=== PATIENT | male | born 1970 | race Caucasian/White ===

== ENCOUNTER → 2018-05-02 | Outpatient (CLI) | payer BC ==
--- NOTE | 2018-05-02 18:44 | P.STRESS ---
- Stress Test Note Stress Test Results/Findings: Exam Performed: stress test Exam Date: 05/02/18 Reason for Exam: Palpitations Height: 6 ft 3 in Weight: 99.79 kg Protocol: Isak Stage: III Duration of Exercise: 9:06 Resting Heart Rate: 96 Resting Blood Pressure: 130/99 Maximum Achieved Heart Rate: 169 Maximum Achieved Blood Pressure: 157/67 85% PMHR: 146 100% PMHR: 172 METS: 10.3 Technologist Comment: Stress Test Results/Findings: This is a 47-year-old gentleman with history of hypercholesterolemia, being evaluated for symptoms of palpitations. Stress data: Baseline EKG showed sinus rhythm with all when necessary for constipation. Blood pressure at rest is 12/12/1998 with pulse rate of 96. Patient walked on the Isak protocol for 9 minutes achieving a maximum heart rate of 169 with a blood pressure of 157/67. EKGs taken during and after the x- ray did not reveal any changes to sized ischemia. Patient did not experience any chest pain. There were no arrhythmias. Final impression: #1. Negative stress test #2. Patient did not express chest pain #3. No arrhythmias noted. #4. Patient exercise capacity is good.
--- NOTE | 2018-05-03 14:01 | ECHOF ---
Referral Reason:R00.2 Palpitations MEASUREMENTS -------- HEIGHT: 190.5 cm WEIGHT: 99.8 kg BP: 130/99 RVIDd: 3.4 cm (< 3.3) IVSd: 1.0 cm (0.6 - 1.1) LVIDd: 4.5 cm (3.9 - 5.3) LVPWd: 1.0 cm (0.6 - 1.1) IVSs: 1.5 cm LVIDs: 3.1 cm LVPWs: 1.5 cm LA Diam: 2.6 cm (2.7 - 3.8) LAESV Index (A-L): 13.66 ml/m Ao Diam: 4.1 cm (2.0 - 3.7) AV Cusp: 2.3 cm (1.5 - 2.6) MV EXCURSION: 15.184 mm (> 18.000) MV EF SLOPE: 96 mm/s (70 - 150) EPSS: 1.0 cm MV E Heladio: 0.53 m/s MV DecT: 173 ms MV A Heladio: 0.98 m/s MV E/A Ratio: 0.54 FINDINGS -------- Sinus rhythm. This was a technically good study. The left ventricular size is normal. Left ventricular wall thickness is normal. Overall left vent ricular systolic function is normal with, an EF between 60 - 65 %. The right ventricle is mildly enlarged. Normal LA size by volume 22+/-6 ml/m2. The right atrium is normal in size. The aortic valve is trileaflet and appears structurally normal. The mitral valve is normal. The tricuspid valve appears structurally normal. There is no pulmonic regurgitation present. The aortic root is dilated measuring 4.1cm. Normal inferior vena cava with normal inspiratory collapse consistent with estimated right atrial pre ssure of 5 mmHg. There is no pericardial effusion. CONCLUSIONS -------- 1. Sinus rhythm. 2. This was a technically good study. 3. The left ventricular size is normal. 4. Left ventricular wall thickness is normal. 5. Overall left ventricular systolic function is normal with, an EF between 60 - 65 %. 6. The right ventricle is mildly enlarged. 7. Normal LA size by volume 22+/-6 ml/m2. 8. The right atrium is normal in size. 9. The aortic valve is trileaflet and appears structurally normal. 10. The mitral valve is normal. 11. The tricuspid valve appears structurally normal. 12. There is no pulmonic regurgitation present. 13. The aortic root is dilated measuring 4.1cm. 14. Normal inferior vena cava with normal inspiratory collapse consistent with estimated right atrial pressure of 5 mmHg. 15. There is no pericardial effusion. VEGETABLE GROWER: Ramonita Cai RDCS
== END | disposition home or self-care (01) ==
LOC: RADNMMAIN 11:08
PROVIDERS: ATTEND Family Medicine
DX: I51.7 Cardiomegaly (principal); I77.819 Aortic ectasia, unspecified site
CPT/HCPCS: 93017; 93306

== ENCOUNTER → 2021-03-22 | Outpatient (CLI) | payer BC | END | disposition home or self-care (01) | LOC: LABWHC1 15:01 | PROVIDERS: ATTEND Surgery | DX: Z20.822 Contact with and (suspected) exposure to COVID-19 (principal) | CPT/HCPCS: U0003; C9803; U0005 ==

== ENCOUNTER 2021-03-29 12:56 | Day surgery (SDC) | payer BC ==
[2021-03-24 15:49] VITALS: BMI 27.2
[~2021-03-29 12:56] MED LIST: LACTATED RINGERS 1,000 ML IV SCH; ONDANSETRON 4 MG/2 ML VIAL IVP PRN
[2021-03-29 13:27] VITALS: TEMP 98.1
[2021-03-29] MEDS ORDERED: LIDOCAINE 1% (10MG/ML) FOR IV START INTRADERMA ONE (13:40)
[2021-03-29] MEDS ORDERED: PROPOFOL 10 MG/ML 20 ML VIAL IV ONE (15:00)
[2021-03-29] MEDS ORDERED: MIDAZOLAM 2 MG/2 ML VIAL ONE (15:00)
[2021-03-29] MEDS ORDERED: IV FLUID CONTINUATION 1,000 ML IV ONE (15:22)
--- NOTE | 2021-03-29 15:36 | P.GSHP ---
History of Present Illness H&P Date: 03/29/21 30-year-old male presents today for screening colonoscopy. He has never had a previous colonoscopy. Patient also states that he has had a history of a food bolus getting stuck a proximally 5 or 6 years ago. He also does have reflux for which she takes a PPI daily. Secondary to this, he is also requested an upper endoscopy. - Review of Systems All systems: negative Past Medical History Past Medical History: Hyperlipidemia Additional Past Medical History / Comment(s): states "feels like is getting food stuck", hx of Covid 10/2020 History of Any Multi-Drug Resistant Organisms: None Reported Past Surgical History: Hernia Repair Additional Past Surgical History / Comment(s): EGD Past Anesthesia/Blood Transfusion Reactions: No Reported Reaction Past Alcohol Use History: None Reported - Past Family History Mother Family Medical History: No Reported History Medications and Allergies Home Medications Medication Instructions Recorded Confirmed Type Atorvastatin Calcium [Lipitor] 10 mg PO HS 07/18/15 03/29/21 History Omeprazole 20 mg PO DAILY 06/02/16 03/29/21 History Allergies Allergy/AdvReac Type Severity Reaction Status Date / Time Penicillins Allergy Swelling Verified 03/29/21 13:25 Surgical - Exam Osteopathic Statement: *. No significant issues noted on an osteopathic structural exam other than those noted in the History and Physical/Consult. Vital Signs Temp Pulse Resp BP Pulse Ox 98.1 F 108 H 16 150/98 95 03/29/21 13:14 03/29/21 13:14 03/29/21 13:14 03/29/21 13:14 03/29/21 13:14 - General well nourished, no distress - Respiratory normal respiratory effort - Abdomen Abdomen: soft, non tender Assessment and Plan Plan: 50-year-old male presents for upper and lower endoscopy. Upper endoscopy will be performed to evaluate secondary to GERD and previous food bolus. Lower endoscopy is performed for screening. Patient was explained the risks, benefits and alternatives of procedure and did provide consent prior to attending the endoscopy suite.
--- NOTE | 2021-03-29 15:39 | P.PCN ---
Date of Procedure: 03/29/21 Preoperative Diagnosis: GERD Screening Postoperative Diagnosis: Gastritis Duodenitis Normal colon Procedure(s) Performed: EGD with biopsy Colonoscopy Anesthesia: MAC Surgeon: Tigre Lucero Pathology: other (Biopsies of esophagus, antrum, duodenum) Condition: stable Disposition: same day Indications for Procedure: 50-year-old male presents for screening colonoscopy. He also was noted to have a history of reflux and history of food bolus getting stuck. Secondary to this plan is for upper endoscopy as well. Patient was explained risks, benefits and alternatives to procedure and did provide consent prior to attending the endoscopy suite. Operative Findings: Gastritis Duodenitis Normal colon Description of Procedure: The patient was brought to [facility] and placed in left lateral decubitus position and adequate sedation was achieved using conscious sedation. A bite block was placed and an endoscope was placed in the oropharynx and advanced under endoscopic visualization. The endoscope was advanced through the esophagus into the stomach, through the gastric antrum and in through the pylorus. The third portion of the duodenum was visualized. The endoscope was then slowly withdrawn. The first portion of the duodenum was noted to have mild infarct or changes. Biopsies were taken. The antrum was noted to have informed her changes. Biopsies were taken. The gastric body distended normally and the gastric folds appeared normal and flattened with insufflation. A retroflexed view of the fundus and GE junction revealed no significant hiatal hernia. The esophagus appeared endoscopically normal. There is no evidence of any stri cture. Biopsies were taken of the distal esophagus. Excess air was removed and the scope was withdrawn. A digital rectal exam was performed and mild internal hemorrhoids were palpated. An endoscope was then placed in the rectum and advanced to the cecum as identified by kathleen including the appendiceal orifice and the ileocecal valve. The prep was good. The colonoscope was then slowly withdrawn, examining for any mucosal or malleus. The cecum, ascending, transverse, descending and sigmoid colon were visualized adequately. There were no obvious neoplastic lesions noted throughout the colon. There were no obvious polyps noted throughout the colon. There is no evidence of diverticulosis. Retroflexion was performed the rectum and mild internal hemorrhoids were visible. Excess air was removed from the colonoscope withdrawn and the procedure terminated. The patient was then transferred to the recovery unit in stable condition. Repeat colonoscopy should be performed in 8 years.
[2021-03-29 15:45] VITALS: BP 117/78; PULSE 72; RESP 18
== END 2021-03-29 16:09 | disposition home or self-care (01) ==
LOC: ORWHC2ENDO 12:56
PROVIDERS: ATTEND Surgery
DX: Z12.11 Encounter for screening for malignant neoplasm of colon (principal); K20.0 Eosinophilic esophagitis; K29.80 Duodenitis without bleeding; K29.70 Gastritis, unspecified, without bleeding; K64.8 Other hemorrhoids; Z98.890 Other specified postprocedural states; E78.5 Hyperlipidemia, unspecified; Z79.899 Other long term (current) drug therapy; Z88.0 Allergy status to penicillin
CPT/HCPCS: 88305; 43239; J2250; J2704; G0121

== ENCOUNTER → 2021-12-13 | Outpatient (CLI) | payer BC ==
--- NOTE | 2021-12-13 10:03 | CT ---
EXAMINATION TYPE: CT sinus wo con DATE OF EXAM: 12/13/2021 COMPARISON: None HISTORY: Sinusitis CT DLP: 718.[address] of the paranasal sinuses was performed in the axial and coronal planes. Bone and soft tissue settings are submitted. The paranasal sinuses demonstrate normal aeration and development. Extensive mucosal thickening within the maxillary sinuses and ethmoid air cells and sphenoid sinuses. Milder mucosal thickening is seen within the bilateral frontal sinuses. The ostiomeatal units are ob structed bilaterally. The nasal septum is midline. No bony destructive changes are seen within the field of view. IMPRESSION: Pansinusitis.
== END | disposition home or self-care (01) ==
LOC: RADCTMAIN 09:26
PROVIDERS: ATTEND Otolaryngology
DX: J32.4 Chronic pansinusitis (principal)
CPT/HCPCS: 70486

== ENCOUNTER 2023-09-27 09:35 | Emergency (ER) | payer BC ==
[2023-09-27 10:01] VITALS: RESP 18
[2023-09-27 10:34] LABS: Appearance,Urine Clear (Clear); Bilirubin,Urine Negative (Negative); Blood,Urine Negative (Negative); Color,Urine Colorless; Glucose,Urine (UA) Negative (Negative); Ketones,Urine Negative (Negative); Leukocyte Esterase,Urine Negative (Negative); Nitrite,Urine Negative (Negative); PH, Urine 5.5 (5.0-8.0); Protein,Urine Negative (Negative); Specific Gravity,Urine 1.006 (1.001-1.035); Urobilinogen,Urine <2.0 mg/dL (<2.0)
[2023-09-27] MEDS ORDERED: KETOROLAC 15 MG/ML 1 ML VIAL IM STA (10:42)
[2023-09-27] MEDS ORDERED: LIDOCAINE 5% PATCH TOPICAL ONE (10:42)
--- NOTE | 2023-09-27 10:54 | XR ---
EXAMINATION TYPE: XR KUB DATE OF EXAM: 09/27/2023 COMPARISON: None INDICATION: Right flank pain lower back TECHNIQUE: Single view abdomen FINDINGS: There is a normal bowel gas pattern. Psoas margins are normal. No organomegaly is present. No suspicious renal or ureteral stones identified. Postsurgical changes are in the right lower hemipe lvis. IMPRESSION: 1. Unremarkable Abdomen
--- NOTE | 2023-09-27 10:55 | XR ---
EXAMINATION TYPE: XR lumbar spine 2 or 3V DATE OF EXAM: 09/27/2023 COMPARISON: None HISTORY: Right lower back pain TECHNIQUE: 3 view lumbar spine FINDINGS: There are 5 lumbar-type vertebral bodies. Pedicles are intact. Disc heights are preserved. Vertebral body heights are preserved. Alignment is preserved. IMPRESSION: 1. No acute osseous abnormality lumbar spine
[2023-09-27] MEDS ORDERED: ACET/COD 300 MG/30 MG STARTER PACK 6 TAB BTL PO STA (11:53)
--- NOTE | 2023-09-27 11:57 | ED ---
Back Pain HPI - General Chief Complaint: Back Pain/Injury Stated Complaint: Back Pain Time Seen by Provider: 09/27/23 09:51 Source: patient, RN notes reviewed Mode of arrival: ambulatory Limitations: no limitations - History of Present Illness Initial Comments: This is a 53-year-old male who presents to the emergency department for right lower back pain. This started about a week ago. Denies any injuries, but states that it is worse with movement. Pain does not radiate into the abdomen. Denies any associated chest pain or shortness of breath. He has been alternating with Advil and Tylenol which is mildly beneficial. Denies any loss of bowel/bladder control or saddle anesthesia. He does not have any nausea or vomiting. Denies any history of kidney stones. MD Complaint: back pain Onset/Timin -: week(s) - Related Data Home Medications Medication Instructions Recorded Confirmed Atorvastatin Calcium [Lipitor] 10 mg PO HS 07/18/15 02/22/22 Omeprazole 20 mg PO Q2D 06/02/16 02/22/22 amLODIPine [Norvasc] 2.5 mg PO QAM 02/21/22 02/22/22 Previous Rx's Medication Instructions Recorded Ketorolac [Toradol] 10 mg PO Q6HR PRN #15 tab 09/27/23 Lidocaine 5% Patch [Lidoderm 5% 1 patch TOPICAL DAILY PRN #30 patch 09/27/23 Patch] methocarbamoL [Robaxin-750] 1,500 mg PO TID PRN #30 tab 09/27/23 predniSONE 50 mg PO DAILY 5 Days #5 tablet 09/27/23 Allergies Allergy/AdvReac Type Severity Reaction Status Date / Time Penicillins Allergy Swelling Verified 09/27/23 09:49 Review of Systems ROS Statement: Those systems with pertinent positive or pertinent negative responses have been documented in the HPI. ROS Other: All systems not noted in ROS Statement are negative. Past Medical History Past Medical History: GERD/Reflux, Hyperlipidemia, Hypertension Additional Past Medical History / Comment(s): deviated septum History of Any Multi-Drug Resistant Organisms: None Reported Past Surgical History: Hernia Repair Additional Past Surgical History / Comment(s): laparoscopic inguinal hernia repair Past Anesthesia/Blood Transfusion Reactions: No Reported Reaction Additional Past Anesthesia/Blood Transfusion Reaction / Comment(s): no hx blood transfusion Past Psychological History: No Psychological Hx Reported Smoking Status: Never smoker Past Alcohol Use History: Occasional - Past Family History Mother Family Medical History: No Reported History Father Additional Family Medical History / Comment(s): precancerous cells esophagus General Exam Limitations: no limitations General appearance: alert, in no apparent distress Head exam: Present: atraumatic, normocephalic, normal inspection Respiratory exam: Present: normal lung sounds bilaterally. Absent: respiratory distress, wheezes, rales, rhonchi, stridor Cardiovascular Exam: Present: regular rate, normal rhythm, normal heart sounds. Absent: systolic murmur, diastolic murmur, rubs, gallop, clicks Back exam: Present: other (Right lower back) Neurological exam: Present: alert, oriented X3, CN II-XII intact Psychiatric exam: Present: normal affect, normal mood Skin exam: Present: warm, dry, intact, normal color. Absent: rash Course Vital Signs 09/27/23 09/27/23 09:46 11:53 Temperature 98.5 F 98 F Pulse Rate 86 75 Respiratory 18 18 Rate Blood Pressure 152/96 149/84 O2 Sat by Pulse 99 100 Oximetry Medical Decision Making - Medical Decision Making This is a 53-year-old male who presents to the emergency department for back pain. Was pt. sent in by a medical professional or institution? @ -No Did you speak to anyone other than the patient for history? @ -No Did you review nursing and triage notes? @ -Yes, and I agree, it is accurate with regards to the patient's symptoms. Were old charts reviewed? @ -No Differential Diagnosis? @ -Differential Back Pain: Strain, zoster, cauda equina syndrome, epidural abscess, vertebral osteomyelitis, discitis, fracture, subluxation, disc herniation, DJD, spinal stenosis, dissection, AAA, pancreatitis, peptic ulcer disease, pyelonephritis, kidney stone, this is not meant to be an all-inclusive list. EKG interpreted by me (3pts min.)? @ -Not obtained X-rays interpreted by me (1pt min.)? @ -X-ray of the lumbar spine obtained. My interpretation identifies no acute fractures. KUB x-ray obtained as well. My interpretation identifies no evidence of a ureteral calculus. CT interpreted by me (1pt min.)? @ -Not obtained U/S interpreted by me (1pt. min.)? @ -Not obtained What testing was considered but not performed? (CT, X-rays, U/S, labs)? Why? @ -None What meds were considered but not given? Why? @ -None Did you discuss the management of the patient with other professionals? @ -No Did you reconcile home meds? @ -No Was smoking cessation discussed for >3mins.? @ -No Was critical care preformed (if so, how long)? @ -No Were there social determinants of health that impacted care today? How? (Homelessness, low income, unemployed, alcoholism, drug addiction, transportation, low edu. Level, literacy, decrease access to med. care, senior living, rehab)? @ -No Was there de-escalation of care discussed even if they declined? (Discuss DNR or withdrawal of care, Hospice)? @ -No What co-morbidities impacted this encounter? (DM, HTN, Smoking, COPD, CAD, Cancer, CVA, Hep., AIDS, mental health diagnosis, sleep apnea, morbid obesity)? @ -None Was patient admitted / discharged? @ -Discharged. Urinalysis obtained and found to be negative for blood or infection. X-ray of the lumbar spine and KUB x-ray obtained as well revealing n o acute process. Toradol and a lidocaine patch provided, which was beneficial. Given that this is in the lower back and worse with movement, this is likely related to a musculoskeletal process. Rx for prednisone, lidocaine patches, and Robaxin provided with dosing instructions reviewed. Otherwise advised he continue with supportive care and follow-up with his primary care provider. Undiagnosed new problem with uncertain prognosis? @ -None Drug Therapy requiring intensive monitoring for toxicity (Heparin, Nitro, Insulin, Cardizem)? @ -None Were any procedures done? @ -None Diagnosis/symptom? @ -Lower back pain Acute, or Chronic, or Acute on Chronic? @ -Acute Uncomplicated (without systemic symptoms) or Complicated (systemic symptoms)? @ -Uncomplicated Side effects of treatment? @ -None Exacerbation, Progression, or Severe Exacerbation] @ -Not applicable Poses a threat to life or bodily function? @ -No Return precautions reviewed in depth, the patient is instructed to return to the emergency department with any new, worsening, or concerning symptoms. Patient verbalized understanding. This case was discussed in detail with the attending ED physician, Dr. Amaya. Presentation, findings, and treatment plan discussed in detail as well. - Lab Data Lab Results 09/27/23 Range/Units 10:08 Urine Color Colorless Urine Appearance Clear (Clear) Urine pH 5.5 (5.0-8.0) Ur Specific [place] 1.006 (1.001-1.035) Urine Protein Negative (Negative) Urine Glucose (UA) Negative (Negative) Urine Ketones Negative (Negative) Urine Blood Negative (Negative) Urine Nitrite Negative (Negative) Urine Bilirubin Negative (Negative) Urine Urobilinogen <2.0 (<2.0) mg/dL Ur Leukocyte Esterase Negative (Negative) - Radiology Data Radiology results: report reviewed, image reviewed Disposition Clinical Impression: Strain of lumbar region Disposition: HOME SELF-CARE Instructions (If sedation given, give patient instructions): Low Back Strain (ED), Acute Low Back Pain (ED) Additional Instructions: Return to the emergency department with any new, worsening, or concerning symptoms. Take the prednisone daily for 5 days. You can take the Toradol up to every 6 hours as needed for pain relief. If you begin to get stomach upset, stop taking the Toradol and wait until you finish the prednisone. Additionally, you may take Toradol and prednisone with Tylenol, but do not take the toradol with any other anti-inflammatories such as ibuprofen, take one or the other. The Robaxin can be taken as 1-2 tablets up to 3-4 times daily. Be aware that this may make you drowsy. You can also apply the lidocaine patches daily. Follow up with your primary care provider in 1-2 days. Prescriptions: Lidocaine 5% Patch [Lidoderm 5% Patch] 1 patch TOPICAL DAILY PRN #30 patch PRN Reason: Pain predniSONE 50 mg PO DAILY 5 Days #5 tablet methocarbamoL [Robaxin-750] 1,500 mg PO TID PRN #30 tab PRN Reason: Pain Ketorolac [Toradol] 10 mg PO Q6HR PRN #15 tab PRN Reason: Pain Is patient prescribed a controlled substance at d/c from ED?: No Referrals: Han Muniz DO [Primary Care Provider] - 1-2 days
[2023-09-27 12:12] VITALS: BP 149/84; PULSE 75; TEMP 98
== END 2023-09-27 12:05 | disposition home or self-care (01) ==
LOC: EC 09:35
DX: S39.012A Strain of muscle, fascia and tendon of lower back, initial encounter (principal); K21.9 Gastro-esophageal reflux disease without esophagitis; E78.5 Hyperlipidemia, unspecified; I10 Essential (primary) hypertension; Z88.0 Allergy status to penicillin; Z79.899 Other long term (current) drug therapy; X50.9XXA Other and unspecified overexertion or strenuous movements or postures, initial encounter
CPT/HCPCS: 81003; 72100; 74018; 99284; 96372; J1885

== ENCOUNTER 2024-01-11 05:33 | Emergency (ER) | payer BC ==
[2024-01-11 06:10] LABS: Glucose,Whole Blood 108 mg/dL (70-110)
--- NOTE | 2024-01-11 06:18 | ED ---
Dizziness HPI - General Chief Complaint: Dizziness Stated Complaint: dizziness nausea Time Seen by Provider: 01/11/24 05:50 Source: patient, RN notes reviewed Mode of arrival: wheelchair Limitations: no limitations - History of Present Illness Initial Comments: 53-year-old male presents emergency department with chief complaint of dizziness. Patient states he woke up this morning states he went to get up and noticed that the room was spinning. Patient dates he became very nauseated he states he sat there did settle down so he got up to go to the bathroom and sat back down and was dizzy again. States he knows there is some at baseline but is much worse with any movement. Denies any significant headache for like he had some sinus issues a few days ago he also describes the discomfort as frontal area during a plane ride recently. Patient denies any focal weakness denies chest pain shortness of breath does have a history of hyperlipidemia and hypertension. - Related Data Home Medications Medication Instructions Recorded Confirmed Atorvastatin Calcium [Lipitor] 10 mg PO HS 07/18/15 02/22/22 Omeprazole 20 mg PO Q2D 06/02/16 02/22/22 amLODIPine [Norvasc] 2.5 mg PO QAM 02/21/22 02/22/22 Previous Rx's Medication Instructions Recorded Ketorolac [Toradol] 10 mg PO Q6HR PRN #15 tab 09/27/23 Lidocaine 5% Patch [Lidoderm 5% 1 patch TOPICAL DAILY PRN #30 patch 09/27/23 Patch] methocarbamoL [Robaxin-750] 1,500 mg PO TID PRN #30 tab 09/27/23 predniSONE 50 mg PO DAILY 5 Days #5 tablet 09/27/23 Meclizine HCl [Antivert] 50 mg PO Q8HR #20 tablet 01/11/24 Ondansetron Odt [Zofran Odt] 4 mg PO Q8HR PRN #14 tab 01/11/24 Allergies Allergy/AdvReac Type Severity Reaction Status Date / Time Penicillins Allergy Swelling Verified 01/11/24 05:40 Review of Systems ROS Statement: Those systems with pertinent positive or pertinent negative responses have been documented in the HPI. ROS Other: All systems not noted in ROS Statement are negative. Past Medical History Past Medical History: GERD/Reflux, Hyperlipidemia, Hypertension Additional Past Medical History / Comment(s): deviated septum History of Any Multi-Drug Resistant Organisms: None Reported Past Surgical History: Hernia Repair Additional Past Surgical History / Comment(s): laparoscopic inguinal hernia repair, nasal Past Anesthesia/Blood Transfusion Reactions: No Reported Reaction Additional Past Anesthesia/Blood Transfusion Reaction / Comment(s): no hx blood transfusion Past Psychological History: No Psychological Hx Reported Smoking Status: Never smoker Past Alcohol Use History: Occasional Past Drug Use History: None Reported - Past Family History Mother Family Medical History: No Reported History Father Additional Family Medical History / Comment(s): precancerous cells esophagus General Exam Limitations: no limitations General appearance: alert, in no apparent distress Head exam: Present: atraumatic, normocephalic, normal inspection Eye exam: Present: normal appearance, PERRL, EOMI. Absent: scleral icterus, conjunctival injection, periorbital swelling ENT exam: Present: normal exam, normal oropharynx, mucous membranes moist Neck exam: Present: normal inspection, full ROM. Absent: tenderness, meningismus, lymphadenopathy Respiratory exam: Present: normal lung sounds bilaterally. Absent: respiratory distress, wheezes, rales, rhonchi, stridor Cardiovascular Exam: Present: regular rate, normal rhythm, normal heart sounds. Absent: systolic murmur, diastolic murmur, rubs, gallop, clicks GI/Abdominal exam: Present: soft, normal bowel sounds. Absent: distended, tenderness, guarding, rebound, rigid Neurological exam: Present: alert, oriented X3, CN II-XII intact, reflexes normal. Absent: motor sensory deficit Skin exam: Present: warm, dry, intact, normal color. Absent: rash Course Vital Signs 01/11/24 01/11/24 01/11/24 05:40 07:04 07:40 Temperature 97.9 F Pulse Rate 87 68 68 Respiratory 18 19 20 Rate Blood Pressure 142/103 131/102 135/101 O2 Sat by Pulse 98 98 98 Oximetry EKG Findings - EKG Comments: EKG Findings:: EKG performed at 5: 46 sinus rhythm with rate of 82 OR 169 QRS 100 QT/QTc 339/378 - EKG Results: EKG: interpreted by ARMIDA Medical Decision Making - Medical Decision Making Was pt. sent in by a medical professional or institution (, PA, COMMUNITY RELATIONS MANAGER, urgent care, hospital, or detention...) When possible be specific @ -No Did you speak to anyone other than the patient for history (EMS, parent, family, police, friend...)? What history was obtained from this source @ -No Did you review nursing and triage notes (agree or disagree)? Why? @ -I reviewed and agree with nursing and triage notes Were old charts reviewed (outside hosp., previous admission, EMS record, old EKG, old radiological studies, urgent care reports/EKG's, detention records)? Report findings @ -No old charts were reviewed Differential Diagnosis (chest pain, altered mental status, abdominal pain women, abdominal pain men, vaginal bleeding, weakness, fever, dyspnea, syncope, headache, dizziness, GI bleed, back pain, seizure, CVA, palpatations, mental health, musculoskeletal)? @ -Differential Dizziness: Benign paroxysmal positional Vertigo, Menieres disease, otitis media, acoustic neuroma, vertebrobasilar insufficiency, cerebellar stroke, encephalitis, hypovolemic, arrhythmia, coronary artery syndrome, anemia, this is not meant to be an all-inclusive list EKG interpreted by me (3pts min.). @ -As above X-rays interpreted by me (1pt min.). @ -None done CT interpreted by me (1pt min.). @ -[CT brain showing chronic sinus disease, polyps. U/S interpreted by me (1pt. min.). @ -None done What testing was considered but not performed or refused? (CT, X-rays, U/S, labs)? Why? @ -None What meds were considered but not given or refused? Why? @ -None Did you discuss the management of the patient with other professionals (professionals i.e. , PA, COMMUNITY RELATIONS MANAGER, lab, RT, psych nurse, social worker psychiatric, employment educational coord, teacher, project control officer, case work aide)? Give summary @ -No Was smoking cessation discussed for >3mins.? @ -No Was critical care preformed (if so, how long)? @ -No Were there social determinants of health that impacted care today? How? (Homelessness, low income, unemployed, alcoholism, drug addiction, transportation, low edu. Level, literacy, decrease access to med. care, fci, rehab)? @ -No Was there de-escalation of care discussed even if they declined (Discuss DNR or withdrawal of care, Hospice)? DNR status @ -No What co-morbidities impacted this encounter? (DM, HTN, Smoking, COPD, CAD, Cancer, CVA, ARF, Chemo, Hep., AIDS, mental health diagnosis, sleep apnea, morbid obesity)? @ -[Hyper tension hyperlipidemia chronic sinus Was patient admitted / discharged? Hospital course, mention meds given and route, prescriptions, significant lab abnormalities, going to OR and other pertinent info. @ -Discharged patient does feel improved this time. Patient discharged with Antivert, Zofran, Nieves's maneuver. Patient's laboratory studies unremarkable. He does have some underlying sinus issues in which she needs to follow-up with Dr. Claros as he had sinus surgery in the past. Patient is nodular intact CT was negative otherwise for acute findings. Undiagnosed new problem with uncertain prognosis? @ -[No Drug Therapy requiring intensive monitoring for toxicity (Heparin, Nitro, Insulin, Cardizem)? @ -No Were any procedures done? @ -No Diagnosis/symptom? @ -Vertigo Acute, or Chronic, or Acute on Chronic? @ -Acute Uncomplicated (without systemic symptoms) or Complicated (systemic symptoms)? @ -Uncomplicated Side effects of treatment? @ -No Exacerbation, Progression, or Severe Exacerbation? @ -No Poses a threat to life or bodily function? How? (Chest pain, USA, DC, pneumonia, PE, COPD, DKA, ARF, appy, cholecystitis, CVA, Diverticulitis, Homicidal, S uicidal, threat to staff... and all critical care pts) @ -No - Lab Data Result diagrams: 01/11/24 06:05 01/11/24 06:05 Lab Results 01/11/24 01/11/24 01/11/24 Range/Units 06:05 06:05 06:05 WBC 7.0 (3.8-10.6) k/uL RBC 5.23 (4.30-5.90) m/uL Hgb 16.2 (13.0-17.5) gm/dL Hct 44.5 (39.0-53.0) % MCV 85.2 (80.0-100.0) fL MCH 31.0 (25.0-35.0) pg MCHC 36.4 (31.0-37.0) g/dL RDW 12.2 (11.5-15.5) % Plt Count 229 (150-450) k/uL MPV 8.5 Neutrophils % 59 % Lymphocytes % 26 % Monocytes % 7 % Eosinophils % 5 % Basophils % 1 % Neutrophils # 4.1 (1.3-7.7) k/uL Lymphocytes # 1.8 (1.0-4.8) k/uL Monocytes # 0.5 (0-1.0) k/uL Eosinophils # 0.4 (0-0.7) k/uL Basophils # 0.0 (0-0.2) k/uL Sodium 138 (137-145) mmol/L Potassium 4.3 (3.5-5.1) mmol/L Chloride 105 (98-107) mmol/L Carbon Dioxide 24 (22-30) mmol/L Anion Gap 9 mmol/L BUN 17 (9-20) mg/dL Creatinine 0.79 (0.66-1.25) mg/dL Est GFR (CKD-EPI)AfAm >90 (>60 ml/min/1.73 sqM) Est GFR (CKD-EPI)NonAf >90 (>60 ml/min/1.73 sqM) Glucose 109 H (74-99) mg/dL POC Glucose (mg/dL) (70-110) mg/dL POC Glu [employer] Supervisor ID Calcium 8.8 (8.4-10.2) mg/dL Magnesium 1.9 (1.6-2.3) mg/dL Total Bilirubin 1.0 (0.2-1.3) mg/dL AST 43 (17-59) U/L ALT 61 H (4-49) U/L Alkaline Phosphatase 57 (38-126) U/L Troponin I 0.013 (0.000-0.034) ng/mL Total Protein 7.1 (6.3-8.2) g/dL Albumin 4.3 (3.5-5.0) g/dL 01/11/24 Range/Units 06:08 WBC (3.8-10.6) k/uL RBC (4.30-5.90) m/uL Hgb (13.0-17.5) gm/dL Hct (39.0-53.0) % MCV (80.0-100.0) fL MCH (25.0-35.0) pg MCHC (31.0-37.0) g/dL RDW (11.5-15.5) % Plt Count (150-450) k/uL MPV Neutrophils % % Lymphocytes % % Monocytes % % Eosinophils % % Basophils % % Neutrophils # (1.3-7.7) k/uL Lymphocytes # (1.0-4.8) k/uL Monocytes # (0-1.0) k/uL Eosinophils # (0-0.7) k/uL Basophils # (0-0.2) k/uL Sodium (137-145) mmol/L Potassium (3.5-5.1) mmol/L Chloride (98-107) mmol/L Carbon Dioxide (22-30) mmol/L Anion Gap mmol/L BUN (9-20) mg/dL Creatinine (0.66-1.25) mg/dL Est GFR (CKD-EPI)AfAm (>60 ml/min/1.73 sqM) Est GFR (CKD-EPI)NonAf (>60 ml/min/1.73 sqM) Glucose (74-99) mg/dL POC Glucose (mg/dL) 108 (70-110) mg/dL POC Glu [employer] Supervisor ID Cooper Bowen Calcium (8.4-10.2) mg/dL Magnesium (1.6-2.3) mg/dL Total Bilirubin (0.2-1.3) mg/dL AST (17-59) U/L ALT (4-49) U/L Alkaline Phosphatase (38-126) U/L Troponin I (0.000-0.034) ng/mL Total Protein (6.3-8.2) g/dL Albumin (3.5-5.0) g/dL Disposition Clinical Impression: Vertigo Disposition: HOME SELF-CARE Condition: Stable Instructions (If sedation given, give patient instructions): Vertigo (ED) Additional Instructions: Please return to the Emergency Department if symptoms worsen or any other concerns. Prescriptions: Meclizine HCl [Antivert] 50 mg PO Q8HR #20 tablet Ondansetron Odt [Zofran Odt] 4 mg PO Q8HR PRN #14 tab PRN Reason: Nausea Is patient prescribed a controlled substance at d/c from ED?: No Referrals: Han Muniz DO [Primary Care Provider] - 1-2 days Time of Disposition: 08:08
[2024-01-11 06:19] VITALS: TEMP 97.9
[2024-01-11] MEDS: SODIUM CHLORIDE 0.9% 1,000 ML IV STA (06:21)
[2024-01-11] MEDS: ONDANSETRON 4 MG/2 ML VIAL IVP STA (06:21)
[2024-01-11 06:31] LABS: Basophils % (A) 1 %; Eosinophils # (A) 0.4 k/uL (0-0.7); Eosinophils % (A) 5 %; HCT 44.5 % (39.0-53.0); HGB 16.2 gm/dL (13.0-17.5); Lymphocytes # (A) 1.8 k/uL (1.0-4.8); Lymphocytes % (A) 26 %; MCHC 36.4 g/dL (31.0-37.0); MCV 85.2 fL (80.0-100.0); Mean Platelet Volume 8.5; Monocytes # (A) 0.5 k/uL (0-1.0); Monocytes % (A) 7 %; Neutrophils # (A) 4.1 k/uL (1.3-7.7); Neutrophils % (A) 59 %; Platelet Count 229 k/uL (150-450); RBC 5.23 m/uL (4.30-5.90); RDW 12.2 % (11.5-15.5)
[2024-01-11 06:40] LABS: ALT 61 U/L (4-49); AST 43 U/L (17-59); African American GFR (CKD) >90 (>60 ml/min/1.73 sqM); Albumin 4.3 g/dL (3.5-5.0); Alkaline Phosphatase 57 U/L (38-126); Anion Gap 9 mmol/L; Blood Urea Nitrogen 17 mg/dL (9-20); Calcium 8.8 mg/dL (8.4-10.2); Carbon Dioxide 24 mmol/L (22-30); Chloride 105 mmol/L (98-107); Glucose 109 mg/dL (74-99); Magnesium 1.9 mg/dL (1.6-2.3); Non-African American GFR(CKD) >90 (>60 ml/min/1.73 sqM); Sodium 138 mmol/L (137-145); Total Protein 7.1 g/dL (6.3-8.2)
--- NOTE | 2024-01-11 06:47 | CT ---
EXAMINATION TYPE: CT brain wo con DATE OF EXAM: 01/11/2024 HISTORY: dizziness CT DLP: 1227.4 mGycm. Automated Exposure Control for Dose Reduction was Utilized. TECHNIQUE: CT scan of the head is performed without contrast. COMPARISON: None. FINDINGS: There is no acute intracranial hemorrhage or midline shift identified. Ventricles and sul ci within normal limits in size for patient's age. Joe-white matter differentiation preserved. There is mucous retention cyst or polyp in the frontal sinus axial image 40. Moderate mucosal thicken ing in the anterior ethmoid sinuses bilaterally. Mild to moderate mucosal thickening with some patchy fluid in anterior aspect sphenoid and posterior aspect ethmoid sinuses. Mucous retention cysts and/o r polyps in the inferior bilateral maxillary sinuses. No suspicious opacification of the mastoid air cells. The globes appear intact bilaterally. IMPRESSION: No acute intracranial hemorrhage or midline shift. Incidental paranasal sinus disease.
[2024-01-11 06:49] LABS: Potassium 4.3 mmol/L (3.5-5.1)
[2024-01-11] MEDS: MECLIZINE 12.5 MG TAB PO STA (07:01)
[2024-01-11 07:34] VITALS: PULSE 68
[2024-01-11] MEDS: amLODIPine 5 MG TAB PO STA (07:39)
[2024-01-11] MEDS: METOCLOPRAMIDE 5 MG/ML 2 ML VIAL IVP STA (08:12)
[2024-01-11 08:54] VITALS: BP 138/97; RESP 16
== END 2024-01-11 08:20 | disposition home or self-care (01) ==
LOC: EC 05:33
DX: R42 Dizziness and giddiness (principal); E78.5 Hyperlipidemia, unspecified; I10 Essential (primary) hypertension; I25.2 Old myocardial infarction; K21.9 Gastro-esophageal reflux disease without esophagitis; Z79.899 Other long term (current) drug therapy; Z88.0 Allergy status to penicillin
CPT/HCPCS: 36415; 93005; 80053; 83735; 84484; 85025; 70450; 99284; 96374; 96375; 96361; J2765; J2405

== ENCOUNTER 2025-04-16 11:49 | Day surgery (SDC) | payer BC ==
[2025-04-14 14:35] VITALS: BMI 28.0
[~2025-04-16 11:49] MED LIST changes: -LACTATED RINGERS 1,000 ML IV SCH; +LIDOCAINE 1% (10MG/ML) FOR IV START INTRADERMA PRN; -ONDANSETRON 4 MG/2 ML VIAL IVP PRN
[2025-04-16] MEDS: IV FLUID CONTINUATION 1,000 ML IV ONE (12:50)
[2025-04-16] MEDS: LACTATED RINGERS 1,000 ML IV SCH (12:51)
[2025-04-16 12:55] VITALS: TEMP 98.3
[2025-04-16] MEDS ORDERED: PROPOFOL 10 MG/ML 20 ML VIAL IV ONE (13:03)
[2025-04-16] MEDS ORDERED: LIDOCAINE 1% INJ 10MG/ML (20 ML MDV) ONE (13:03)
[2025-04-16 13:19] VITALS: RESP 16
[2025-04-16 13:40] VITALS: BP 126/91; PULSE 78
--- NOTE | 2025-04-16 21:12 | P.OP ---
Date of Procedure: 04/16/25 Preoperative Diagnosis: Barretts Espophagus Postoperative Diagnosis: Barretts Esophagus Procedure(s) Performed: EGD with Biopsy Anesthesia: JONNA Surgeon: Rob Mckeon Pathology: other (Antral Biopsies/Barretts Biopsy) Condition: stable Disposition: PACU Description of Procedure: Informed consent was obtained. The procedure, its risks, benefits, and alternatives were discussed. The patient was placed in the left lateral decubitus position. The endoscope was inserted into the oropharynx and guided under direct vision into the esophagus, stomach, and duodenum. The duodenal bulb and second portion were unremarkable. The scope was withdrawn to the stomach and retroflexed. There was no increased fluid, food or secretions in the upper gastrointestinal tract. There was very minimal, nonspecific, patchy antral erythema. Biopsies were obtained for Helicobacter pylori. No erosions or ulcers. The scope was withdrawn to the esophagus. There was Barretts esophagitis noted. Cold biopsies were obtained The patient tolerated the procedure very well. The patient was then transferred to the recovery area in good condition. There were no apparent complications.
== END 2025-04-16 14:05 | disposition home or self-care (01) ==
LOC: ORWHC2ENDO 11:49
PROVIDERS: ATTEND Surgery
DX: K22.70 Barrett's esophagus without dysplasia (principal); K29.50 Unspecified chronic gastritis without bleeding; K21.00 Gastro-esophageal reflux disease with esophagitis, without bleeding; I10 Essential (primary) hypertension; E78.5 Hyperlipidemia, unspecified; Z79.899 Other long term (current) drug therapy; Z88.0 Allergy status to penicillin
CPT/HCPCS: 43239; J2003; J2704; 88305